=== PATIENT | female | born 1995 ===

== ENCOUNTER 2016-11-23 13:48 | Emergency (ER) | payer MEDICAID ==
[2016-11-23 13:55] VITALS: BP 116/74; PULSE 62; TEMP 98.5; O2SAT 100
--- NOTE | 2016-11-23 14:55 | C.PDOC ---
History Of Present Illness 21F c/o atraumatic pain in her left shoulder for the last 2 days. she says she woke up with the pain. she has not taken any medication for it. 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 she denies any sig pmh. Time Seen by Provider: 11/23/16 14:47 Chief Complaint (Nursing): Back Pain Past Medical History Vital Signs: Last Vital Signs Temp 98.5 F 11/23/16 13:53 Pulse 62 11/23/16 13:53 Resp 18 11/23/16 13:53 BP 116/74 11/23/16 13:53 Pulse Ox 100 11/23/16 15:07 - Medical History PMH: Denies: Asthma, COPD, Depression, Chronic Kidney Disease Family History: States: Other - Social History Hx Tobacco Use: Yes Hx Alcohol Use: Yes Hx Substance Use: No - Immunization History Hx Tetanus Toxoid Vaccination: No Hx Influenza Vaccination: No Hx Pneumococcal Vaccination: No Review Of Systems Constitutional: Negative for: Fever, Chills, Weakness, Malaise Cardiovascular: Negative for: Chest Pain Respiratory: Negative for: Cough, Shortness of Breath Gastrointestinal: Negative for: Nausea, Vomiting, Abdominal Pain Neurological: Negative for: Weakness, Numbness Physical Exam - Physical Exam Appears: Well, Non-toxic, No Acute Distress Skin: Warm, Dry Head: Atraumatic Eye(s): bilateral: PERRL, EOMI Neck: Normal ROM Cardiovascular: Rhythm Regular Respiratory: Normal Breath Sounds, No Decreased Breath Sounds, No Accessory Muscle Use Extremity: Normal ROM, Tenderness (ttp mainly over left posterior shoulder/ scapular and left trap musc. ), No Deformity, No Swelling Pulses: Left Radial: Normal Neurological/Psych: Oriented x3, Normal Motor, Normal Sensation ED Course And Treatment O2 Sat by Pulse Oximetry: 100 Disposition - Disposition Disposition: HOME/ ROUTINE Disposition Time: 16:15 Condition: GOOD Additional Instructions: Please follow up with your primary doctor. Return to the ER for any worsening symptoms or for any other concerns. Forms: General Discharge Instructions - Clinical Impression Clinical Impression: Muscle spasm
[2016-11-23 16:25] VITALS: RESP 20
== END 2016-11-23 16:24 | disposition home or self-care (01) ==
LOC: C.ER 13:48
DX: M62.838 Other muscle spasm (principal)

== ENCOUNTER 2017-04-14 23:11 | Emergency (ER) | payer MEDICAID ==
[2017-04-14 23:18] VITALS: RESP 20; TEMP 98.5
--- NOTE | 2017-04-14 23:37 | C.PDOC ---
History Of Present Illness 21 year old female presents to the ED for evaluation of sore throat and soreness to her lower lips which began around 1 week ago. Patient denies fever, chills. Time Seen by Provider: 04/14/17 23:22 Chief Complaint (Nursing): ENT Problem History Per: Patient History/Exam Limitations: no limitations Onset/Duration Of Symptoms: Days (1 week) Current Symptoms Are (Timing): Still Present Additional History Per: Patient Past Medical History Reviewed: Historical Data, Nursing Documentation, Vital Signs Vital Signs: Last Vital Signs Temp 98.5 F 04/14/17 23:13 Pulse 88 04/15/17 01:00 Resp 20 04/15/17 01:00 BP 116/78 04/15/17 01:00 Pulse Ox 98 04/15/17 04:13 - Medical History PMH: No Chronic Diseases Surgical History: No Surg Hx Family History: States: Unknown Family Hx - Social History Hx Tobacco Use: Yes Hx Alcohol Use: Yes Hx Substance Use: No - Immunization History Hx Tetanus Toxoid Vaccination: No Hx Influenza Vaccination: No Hx Pneumococcal Vaccination: No Review Of Systems Constitutional: Negative for: Fever, Chills ENT: Positive for: Throat Pain, Other (soreness on lower lips ) Physical Exam - Physical Exam Appears: Non-toxic, No Acute Distress Skin: Normal Color, Warm, Dry Head: Atraumatic, Normacephalic Eye(s): bilateral: Normal Inspection Ear(s): Bilateral: Normal Nose: Normal, No Discharge Oral Mucosa: Moist Lips: Other (vesicilar sores on lower lip) Throat: Normal, No Erythema, No Exudate Chest: Symmetrical, No Deformity Cardiovascular: Rhythm Regular, No Murmur Respiratory: Normal Breath Sounds, No Rales, No Rhonchi, No Wheezing Extremity: Normal ROM Neurological/Psych: Oriented x3, Normal Speech, Normal Cognition Gait: Steady ED Course And Treatment O2 Sat by Pulse Oximetry: 98 (on RA) Pulse Ox Interpretation: Normal Progress Note: On reassessment, patient is resting comfortably, showing no signs of distress and is stable for discharge. Patient will be discharged with Rx for Zovirax 5% Oint and instructed to apply the cream as prescribed. Patient is advised to follow up with her PMD within 1-2 days for further evaluation. Reassessment Condition: Unchanged Disposition - Disposition Disposition: HOME/ ROUTINE Disposition Time: 23:35 Condition: STABLE Additional Instructions: Follow up with your PMD within 1-2 days. Return to ED if feel worse. 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 - Scribe Statement The provider has reviewed the documentation as recorded by the Scribe (Kathy Morel) All medical record entries made by the Scribe were at my direction and personally dictated by me. I have reviewed the chart and agree that the record accurately reflects my personal performance of the history, physical exam, medical decision making, and the department course for this patient. I have also personally directed, reviewed, and agree with the discharge instructions and disposition.
[2017-04-15 01:22] VITALS: BP 116/78; PULSE 88
[2017-04-15 04:03] VITALS: O2SAT 98
== END 2017-04-15 01:19 | disposition home or self-care (01) ==
LOC: C.ER 23:11
DX: B34.9 Viral infection, unspecified (principal)

== ENCOUNTER 2017-07-12 18:45 | Emergency (ER) | payer MEDICAID ==
[2017-07-12 18:50] VITALS: BP 135/88; PULSE 68; RESP 20; TEMP 98.1; O2SAT 99
--- NOTE | 2017-07-12 19:44 | C.PDOC ---
History Of Present Illness 21 y/o female presents to the ED for evaluation of sore throat, congestion and cough for 5 days. Patient has not taken any medicine for symptoms and denies fever, chills, chest pain, shortness of breath, difficulty with breathing/ swallowing. Time Seen by Provider: 07/12/17 19:20 Chief Complaint (Nursing): Cough, Cold, Congestion History Per: Patient History/Exam Limitations: no limitations Onset/Duration Of Symptoms: Days (5) Current Symptoms Are (Timing): Still Present Location Of Pain: Throat Associated Symptoms: Sore Throat, Cough, Nasal Congestion. denies: Fever, Chills Additional History Per: Patient Past Medical History Reviewed: Historical Data, Nursing Documentation, Vital Signs Vital Signs: Last Vital Signs Temp 98.1 F 07/12/17 18:48 Pulse 68 07/12/17 18:48 Resp 20 07/12/17 20:13 BP 135/88 07/12/17 18:48 Pulse Ox 99 07/12/17 20:08 - Medical History PMH: No Chronic Diseases Surgical History: No Surg Hx Family History: States: Unknown Family Hx - Social History Hx Tobacco Use: Yes Hx Alcohol Use: Yes Hx Substance Use: No - Immunization History Hx Tetanus Toxoid Vaccination: No Hx Influenza Vaccination: No Hx Pneumococcal Vaccination: No Review Of Systems Constitutional: Negative for: Fever ENT: Positive for: Nose Congestion, Throat Pain Respiratory: Negative for: Shortness of Breath Physical Exam - Physical Exam Appears: Non-toxic, No Acute Distress Skin: Normal Color, Warm, Dry Head: Atraumatic, Normacephalic Eye(s): bilateral: Normal Inspection Ear(s): Bilateral: Normal Nose: Other (clear nasal congestion ) Oral Mucosa: Moist Throat: Normal, No Erythema, No Exudate Neck: Normal ROM, Supple Chest: Symmetrical, No Deformity, No Tenderness Cardiovascular: Rhythm Regular, No Murmur Respiratory: Normal Breath Sounds, No Rales, No Rhonchi, No Wheezing, Other ( occasional cough noted ) Neurological/Psych: Normal Speech, Normal Cognition Gait: Steady ED Course And Treatment O2 Sat by Pulse Oximetry: 99 (on RA ) Pulse Ox Interpretation: Normal Progress Note: Throat culture obtained. Rapid Strep test ordered and resulted negative. Motrin PO administered. On reassessment, patient is resting comfortably, showing no signs of respiratory distress, remains afebrile and is stable for discharge. Patient is instructed on symptomatic treatment and is advised to follow up with PMD/clinic withn 2-5 days for further evaluation. Disposition - Disposition Disposition: HOME/ ROUTINE Disposition Time: 19:43 Condition: STABLE Additional Instructions: Drink plenty of fluids. Take over the counter medication for your symptoms. 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 - Scribe Statement The provider has reviewed the documentation as recorded by the Scribe (Kathy Morel) All medical record entries made by the Scribe were at my direction and personally dictated by me. I have reviewed the chart and agree that the record accurately reflects my personal performance of the history, physical exam, medical decision making, and the department course for this patient. I have also personally directed, reviewed, and agree with the discharge instructions and disposition.
== END 2017-07-12 20:13 | disposition home or self-care (01) ==
LOC: C.ER 18:45
DX: J06.9 Acute upper respiratory infection, unspecified (principal); Z87.891 Personal history of nicotine dependence

== ENCOUNTER 2018-01-16 13:44 | Emergency (ER) | payer MEDICAID ==
[2018-01-16 13:58] VITALS: BP 107/73; PULSE 55; RESP 20; TEMP 99.6; O2SAT 96
--- NOTE | 2018-01-16 14:08 | C.PDOC ---
History Of Present Illness 22 year old female presents to the ED for evaluation of two blisters to her inner ankle noted after she underwent laser tattoo removal 6 days ago. Patient states a small blister developed the evening of the day she underwent removal, and then noticed a second blister appeared later on. Patient reports mild pain, stating she has been working and standing on her feet all day. Patient states she called the tattoo removal place and is scheduled for an appointment next week. She denies fever, chills, or injury to the area. Time Seen by Provider: 01/16/18 13:56 Chief Complaint (Nursing): Abnormal Skin Integrity History Per: Patient History/Exam Limitations: no limitations Onset/Duration Of Symptoms: Days (6) Current Symptoms Are (Timing): Still Present Additional History Per: Patient Past Medical History Reviewed: Historical Data, Nursing Documentation, Vital Signs Vital Signs: Last Vital Signs Temp 99.6 F 01/16/18 13:57 Pulse 55 L 01/16/18 13:57 Resp 20 01/16/18 13:57 BP 107/73 01/16/18 13:57 Pulse Ox 96 01/16/18 14:08 - Medical History PMH: No Chronic Diseases Denies: Asthma, COPD, Depression, Chronic Kidney Disease Surgical History: No Surg Hx Family History: States: Unknown Family Hx - Social History Hx Tobacco Use: Yes Hx Alcohol Use: Yes Hx Substance Use: No - Immunization History Hx Tetanus Toxoid Vaccination: No Hx Influenza Vaccination: No Hx Pneumococcal Vaccination: No Review Of Systems Constitutional: Negative for: Fever, Chills Skin: Positive for: Other (blister formation s/p laser tattoo removal ) Physical Exam - Physical Exam Appears: Non-toxic, No Acute Distress Skin: Normal Color, Warm, Dry, Other (two small blisters to distal medial tibia. no erythema, swelling or tenderness noted) Head: Atraumatic, Normacephalic Eye(s): bilateral: Normal Inspection Oral Mucosa: Moist Neck: Supple Chest: Symmetrical, No Deformity, No Tenderness Cardiovascular: Rhythm Regular Respiratory: Normal Breath Sounds Extremity: Normal ROM, No Tenderness, Capillary Refill (less than 2 seconds ), No Swelling Neurological/Psych: Oriented x3, Normal Speech, Normal Cognition ED Course And Treatment O2 Sat by Pulse Oximetry: 96 (on RA) Pulse Ox Interpretation: Normal Medical Decision Making Medical Decision Making: Impression: 22 year old female with skin blistering after tattoo removal Progress: Area cleaned and dry, sterile dressing applied. Patient is instructed on wound care. Advised to follow up with her PMD within 1-2 days for further evaluation and/or return to the ED if symptoms persist or worsen. Disposition Counseled Patient/Family Regarding: Diagnosis, Need For Followup, Rx Given - Disposition Disposition: HOME/ ROUTINE Disposition Time: 14:06 Condition: GOOD Additional Instructions: Take Tylenol or Motrin for any pain. Change bandage about twice a day to keep clean and dry. May wash the area with soapy water and be gentle, pat dry. Apply burn cream or ointment. Do not pop blisters if possible, new skin is forming under the blister. 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 - Scribe Statement The provider has reviewed the documentation as recorded by the Scribe (Kathy Morel) All medical record entries made by the Scribe were at my direction and personally dictated by me. I have reviewed the chart and agree that the record accurately reflects my personal performance of the history, physical exam, medical decision making, and the department course for this patient. I have also personally directed, reviewed, and agree with the discharge instructions and disposition.
== END 2018-01-16 14:18 | disposition home or self-care (01) ==
LOC: C.ER 13:44
DX: S80.822A Blister (nonthermal), left lower leg, initial encounter (principal); X58.XXXA Exposure to other specified factors, initial encounter; Y92.9 Unspecified place or not applicable

== ENCOUNTER 2018-03-13 09:21 | Emergency (ER) | payer MEDICAID ==
[2018-03-13 09:28] VITALS: BP 127/71; PULSE 68; RESP 18; TEMP 98.3; O2SAT 97
--- NOTE | 2018-03-13 09:44 | C.PDOC ---
History Of Present Illness CC: Right forearm non-pruritic rash Patient is a 22 year old female with no known past medical history, who presents to the ED with a right intermittent forearm rash that has been on going for 3 weeks. Patient states that the rash will come and go and denies any itchiness, fever, chills, nausea, abdominal pain, diarrhea or recent sickness and recent outdoor activities. Patient reports that she started laser hair removal treatment 02/13/18 and she is not sure whether the rash is due to that. Time Seen by Provider: 03/13/18 09:33 Chief Complaint (Nursing): Abnormal Skin Integrity History Per: Patient History/Exam Limitations: no limitations Onset/Duration Of Symptoms: Days Severity: None Location: Right forearm Past Medical History Vital Signs: Last Vital Signs Temp 98.3 F 03/13/18 09:25 Pulse 68 03/13/18 09:25 Resp 18 03/13/18 09:25 BP 127/71 03/13/18 09:25 Pulse Ox 97 03/13/18 09:55 - Medical History PMH: No Chronic Diseases Denies: Asthma, COPD, Depression, Chronic Kidney Disease Surgical History: No Surg Hx Family History: States: Unknown Family Hx - Social History Hx Tobacco Use: No Hx Alcohol Use: No Hx Substance Use: No - Immunization History Hx Tetanus Toxoid Vaccination: No Hx Influenza Vaccination: No Hx Pneumococcal Vaccination: No Review Of Systems Constitutional: Negative for: Fever, Chills, Weakness, Malaise Eyes: Negative for: Pain ENT: Negative for: Ear Pain, Ear Discharge, Nose Congestion, Mouth Pain Cardiovascular: Negative for: Chest Pain, Palpitations Respiratory: Negative for: Cough, Shortness of Breath Gastrointestinal: Negative for: Nausea, Vomiting, Abdominal Pain, Diarrhea Genitourinary: Negative for: Dysuria Musculoskeletal: Negative for: Neck Pain, Shoulder Pain, Arm Pain, Back Pain, Hand Pain Skin: Positive for: Rash (Right forearm rash ). Negative for: Lesions, Jaundice , Bruising Physical Exam - Physical Exam Appears: Well Skin: Normal Color Head: Atraumatic, Normacephalic Eye(s): bilateral: EOMI Neck: Normal ROM Cardiovascular: Rhythm Regular, No Rhythm Irregular, No Edema, No Friction Rub, No Murmur Respiratory: Normal Breath Sounds, No Decreased Breath Sounds, No Accessory Muscle Use Gastrointestinal/Abdominal: Normal Exam, Bowel Sounds, Soft, No Tenderness, No Organomegaly, No Mass Extremity: Normal ROM Extremity: Bilateral: Atraumatic ED Course And Treatment O2 Sat by Pulse Oximetry: 97 Disposition Discussed With DrSharon: Jan Nguyen - Disposition Disposition: HOME/ ROUTINE Disposition Time: 09:47 Condition: STABLE Additional Instructions: Please discharge patient home Please follow up with your primary care physician, Dr. Adrienne Sanches in 1-2 days Please keep in mind that recent initiation of laser hair removal treatment may skin irritation Please return if rash worsens or other symptoms are noted Instructions: Skin Rash (DC) Forms: [employer] (Turkish), General Discharge Instructions - Clinical Impression Clinical Impression: Skin irritation, Rash of unknown cause
== END 2018-03-13 09:58 | disposition home or self-care (01) ==
LOC: C.ER 09:21
DX: R21 Rash and other nonspecific skin eruption (principal)

== ENCOUNTER 2018-05-19 18:34 | Emergency (ER) | payer MEDICAID ==
[2018-05-19 18:53] VITALS: TEMP 99.5
--- NOTE | 2018-05-19 19:32 | C.PDOC ---
History Of Present Illness 22 year old female presents to the ED complaining of anxiety ongoing for 2 days. Reports she is unable to sleep at night because she feels her head is pounding and her heart is racing. States she is stressed with school and work. Admits to drinking a lot of coffee. Denies any chest pain, shortness of breath, headache, vomiting, or any other symptoms. Time Seen by Provider: 05/19/18 19:00 Chief Complaint (Nursing): Anxiety History Per: Patient History/Exam Limitations: no limitations Onset/Duration Of Symptoms: Days Current Symptoms Are (Timing): Still Present Suicide/Self Injury Attempted (Context): None Modifying Factor(s): None Pain Scale Rating Of: 0 Associated Symptoms: Anxiety Additional History Per: Patient (reports that currently she has no symptoms. ) Past Medical History Vital Signs: Last Vital Signs Temp 99.5 F 05/19/18 18:45 Pulse 76 05/19/18 18:45 Resp 18 05/19/18 18:45 BP 107/67 05/19/18 18:45 Pulse Ox 100 05/19/18 18:45 - Medical History PMH: No Chronic Diseases Denies: Asthma, COPD, Depression, Chronic Kidney Disease Surgical History: No Surg Hx Family History: States: No Known Family Hx - Social History Hx Tobacco Use: No Hx Alcohol Use: No Hx Substance Use: No - Immunization History Hx Tetanus Toxoid Vaccination: No Hx Influenza Vaccination: No Hx Pneumococcal Vaccination: No Review Of Systems Except As Marked, All Systems Reviewed And Found Negative. Cardiovascular: Positive for: Palpitations. Negative for: Chest Pain Respiratory: Negative for: Shortness of Breath Gastrointestinal: Positive for: Nausea. Negative for: Vomiting Psych: Positive for: Anxiety Physical Exam - Physical Exam Appears: Non-toxic Skin: Warm, Dry Head: Normacephalic Eye(s): bilateral: Normal Inspection Ear(s): Bilateral: Normal Nose: Normal Oral Mucosa: Moist Neck: Supple Chest: Symmetrical Cardiovascular: Rhythm Regular Respiratory: Normal Breath Sounds, No Rales, No Rhonchi, No Wheezing Extremity: Normal ROM Neurological/Psych: Oriented x3, Normal Speech Gait: Steady ED Course And Treatment O2 Sat by Pulse Oximetry: 100 (RA) Pulse Ox Interpretation: Normal Disposition - Disposition Referrals: at [facility] [Outside] Disposition: HOME/ ROUTINE Disposition Time: 19:44 Condition: STABLE Additional Instructions: Follow up with the medical doctor/clinic within 1-2 days. Return if worsened. Prescriptions: hydrOXYzine HCl [Atarax] 25 mg PO HS PRN #30 tab PRN Reason: Anxiety Instructions: Panic Disorder (DC) Forms: [employer] (Icelandic) - Clinical Impression Clinical Impression: Panic attack - PA / COMPENSATION EXPERT / Resident Statement MD/DO has reviewed & agrees with the documentation as recorded. - Scribe Statement The provider has reviewed the documentation as recorded by the Scribe Janell Cowan All medical record entries made by the Jacobibtino were at my direction and personally dictated by me. I have reviewed the chart and agree that the record accurately reflects my personal performance of the history, physical exam, medical decision making, and the department course for this patient. I have also personally directed, reviewed, and agree with the discharge instructions and disposition.
[2018-05-19 19:51] VITALS: BP 108/72; PULSE 78; RESP 16
[2018-05-19 20:03] VITALS: O2SAT 100
--- NOTE | 2018-05-20 12:45 | CARD ---
APPROVED REPORT Date of service: 05/19/2018 EKG Measurement Heart [id number] <Conclusion> Normal sinus rhythm Normal ECG
== END 2018-05-19 19:50 | disposition home or self-care (01) ==
LOC: C.ER 18:34
DX: F41.0 Panic disorder [episodic paroxysmal anxiety] (principal)